=== PATIENT | female | born 1980 | race Caucasian/White ===

== ENCOUNTER → 2018-03-15 | Outpatient (CLI) | payer BC ==
--- NOTE | 2018-03-15 11:49 | US ---
EXAMINATION TYPE: US pelvis complete transvaginal DATE OF EXAM: 03/15/2018 COMPARISON: CLINICAL HISTORY: N92.1 MENORRHAGIA. Postcoital bleeding TECHNIQUE: Transvaginal (TV) and Transabdominal (TA) . Transabdominal sonographic images of the pel vis were acquired. Transvaginal sonographic images were medically necessary to better assess the fol lowing anatomy: Ovaries. Grayscale, color Doppler imaging performed of the ovaries. Date of LMP: 03/02/2018, EXAM MEASUREMENTS: Uterus: 8.9 x 4.7 x 3.8 cm Endometrial Stripe: 0.6 cm Right Ovary: 2.8 x 1.8 x 1.5 cm Left Ovary: 5.0 x 2.9 x 2.5 cm 1. Uterus: Anteverted Heterogenous 2. Endometrium: wnl 3. Right Ovary: Follicles seen 4. Left Ovary: Follicles seen. Cystic appearing lesion - 3.3 x 2.2 x 2.2 cm 5. Bilateral Adnexa: wnl 6. Posterior cul-de-sac: no free fluid Cervix- nabothian cyst IMPRESSION: Normal endometrial stripe thickness. Heterogeneous appearance to the uterus could be due to underlying fibroid uterus, pelvic MRI may be of benefit. Probable left ovarian cyst, consider foll ow-up.
== END | disposition home or self-care (01) ==
LOC: RADUSWWP 10:05
PROVIDERS: ATTEND Obstetrics & Gynecology
DX: N92.1 Excessive and frequent menstruation with irregular cycle (principal); N93.0 Postcoital and contact bleeding
CPT/HCPCS: 76830; 76856

== ENCOUNTER → 2019-02-07 | Outpatient (CLI) | payer BC ==
[2019-02-07 15:25] VITALS: BP 103/54; PULSE 80; RESP 16; TEMP 98.2; BMI 43.7
--- NOTE | 2019-02-25 13:37 | P.HPBAR ---
Bariatric H&P - History & Physicial H&P Date: 02/07/19 History & Physicial: Visit/CC: SLEEVE/2014 3RD VISIT TO CLINIC ONLY Patient initial contact: Initial weight: 101.151 kg Initial weight in pounds: 223.00 Height: 5 ft Initial BMI: 43.5 Last weight: Current weight: 101.605 kg Current weight in pounds: 224.00 Current BMI: 43.7 [place] body weight (based on NIH guidelines): 45.359 kg Excess body weight loss: The patient is a 38 year-old F who presents for Bariatric Assessment. Patient presents today for sleeve gastrectomy follow-up. She's had some minimal GERD. She also has complaints of increased weight with weight gain. Past Medical History Past Medical History: GERD/Reflux Additional Past Medical History / Comment(s): OBESITY, heavy menstural periods, History of Any Multi-Drug Resistant Organisms: None Reported Past Surgical History: Appendectomy, Bariatric Surgery, Section Additional Past Surgical History / Comment(s): CTR BILAT WRISTS, GASTRIC SLEEVE January- CAME IN FOR EGD/DILATION, PERFORATED AND WENT TO OR TO REPAIR. Past Anesthesia/Blood Transfusion Reactions: No Reported Reaction Smoking Status: Former smoker - Past Family History Mother Family Medical History: Thyroid Disorder Father Family Medical History: No Reported History, Musculoskeletal Disorder Additional Family Medical History / Comment(s): bad knees and bad back Surgical - Exam Vital Signs Temp Pulse Resp BP 98.2 F 80 16 103/54 02/07/19 15:22 02/07/19 15:22 02/07/19 15:22 02/07/19 15:22 - General well developed, well nourished, no distress - Abdomen Abdomen: soft, non tender Bariatric Assessment & Plan Plan: Status post sleeve gastrectomy. Patient's had GERD and waking. She'll undergo EGD. Bariatric Checklist Checklist: Plan: Checklist: EGD: 1. Hiatal hernia: 2. H. Pylori: HgbA1c: Vitamin D: Smoking: Former smoker Primary care physician referral: Rubens Berry ([facility]) Psychiatry clearance: Cardiology clearance: Sleep study: Diet journal: VTE risk score: VTE risk level: Rehab needs at discharge:
== END | disposition home or self-care (01) ==
LOC: BARWHC3 14:59
PROVIDERS: ATTEND Surgery
DX: Z48.815 Encounter for surgical aftercare following surgery on the digestive system (principal); K21.9 Gastro-esophageal reflux disease without esophagitis; Z98.84 Bariatric surgery status
CPT/HCPCS: 99211

== ENCOUNTER → 2019-02-14 | Outpatient (CLI) | payer BC ==
--- NOTE | 2019-02-14 13:42 | FL ---
EXAMINATION: Single contrast Cervical and Thoracic Esophagram DATE OF EXAM: 02/14/2019 CLINICAL INDICATION: 38-year-old female dysphasia, patient reports iron deficiency anemia, history of gastric sleeve surgery 2014. COMPARISON: 02/28/2015 Total Fluoroscopy Time: 34 seconds. Total images: 15 FINDINGS: The swallowing mechanism is normal and hypopharyngeal anatomy is preserved. The cervical and thoracic portions have a normal course and caliber and normal motility. The mucosa i s normal and no persistent filling defect is encountered allowing for single contrast technique. No hiatal hernia is present. There is prompt passage from the stomach into the surgery stomach and th en into the small bowel. IMPRESSION: 1. Status post sleeve gastrectomy. 2. Otherwise, unremarkable single contrast esophagram.
== END | disposition home or self-care (01) ==
LOC: RADUSWWP 08:59
PROVIDERS: ATTEND Surgery Plastic and Reconstructive Surgery
DX: R13.10 Dysphagia, unspecified (principal); Z98.84 Bariatric surgery status
CPT/HCPCS: 74220

== ENCOUNTER 2019-02-18 09:29 | Day surgery (SDC) | payer BC ==
[2019-02-16 10:50] VITALS: BMI 44.3
[~2019-02-18 09:29] MED LIST: LACTATED RINGERS 1,000 ML IV SCH
[2019-02-18 09:46] VITALS: TEMP 97.7
[2019-02-18] MEDS ORDERED: LIDOCAINE 1% 20 ML VIAL (10MG/ML) FOR IV START INTRADERMA ONE (09:48)
[2019-02-18] MEDS ORDERED: LIDOCAINE 1% INJ 10MG/ML (20 ML MDV) ONE (10:16)
[2019-02-18] MEDS ORDERED: PROPOFOL 10 MG/ML 20 ML VIAL IV ONE (10:16)
--- NOTE | 2019-02-18 10:22 | P.GSHP ---
History of Present Illness H&P Date: 02/18/19 Chief Complaint: GERD This is a 38-year-old female who has undergone previous laparoscopic sleeve gastric. Patient has developed GERD. She presents today for EGD. Past Medical History Past Medical History: GERD/Reflux Additional Past Medical History / Comment(s): heavy menstural periods, ANEMIA, HEADACHE History of Any Multi-Drug Resistant Organisms: None Reported Past Surgical History: Appendectomy, Bariatric Surgery, Section Additional Past Surgical History / Comment(s): CTR BILAT WRISTS, GASTRIC SLEEVE January- CAME IN FOR EGD/DILATION, PERFORATED AND WENT TO OR TO REPAIR. Past Anesthesia/Blood Transfusion Reactions: No Reported Reaction Smoking Status: Former smoker - Past Family History Mother Family Medical History: Thyroid Disorder Father Family Medical History: Cancer Additional Family Medical History / Comment(s): COLON AND SKIN CANCER Medications and Allergies Home Medications Medication Instructions Recorded Confirmed Type buPROPion SR [Wellbutrin SR] 150 mg PO BID 04/04/14 02/16/19 History Omeprazole 40 mg PO -BRKFST #90 cap 01/24/15 02/16/19 Rx Acetaminophen [Tylenol] 325 mg PO Q4H PRN 02/07/19 02/18/19 History FLUoxetine HCL [PROzac] 20 mg PO DAILY 02/07/19 02/16/19 History Ferrous Sulfate [Iron] 325 mg PO DAILY 02/16/19 02/16/19 History Allergies Allergy/AdvReac Type Severity Reaction Status Date / Time No Known Allergies Allergy Verified 02/18/19 09:41 Surgical - Exam Vital Signs Temp Pulse Resp BP Pulse Ox 97.7 F 68 18 134/69 96 02/18/19 09:43 02/18/19 09:43 02/18/19 09:43 02/18/19 09:43 02/18/19 09:43 - General well developed, well nourished, no distress - Eyes PERRL - ENT normal pinna - Neck no masses - Respiratory normal expansion - Cardiovascular Rhythm: regular - Abdomen Abdomen: soft, non tender Assessment and Plan Assessment: GERD. We'll perform EGD.
[2019-02-18 10:35] VITALS: RESP 16
--- NOTE | 2019-02-18 10:35 | P.OP ---
Date of Procedure: 02/18/19 Preoperative Diagnosis: GERD Postoperative Diagnosis: Antral gastritis Gastric diverticulum Procedure(s) Performed: EGD Anesthesia: MAC Surgeon: Juni Arndt Pathology: other (Antrum) Condition: stable Disposition: PACU Description of Procedure: The patient's placed on the endoscopy table in the lateral position. The patient received IV sedation. The gastroscope some placed oropharynx passed in the esophagus and into the stomach. Scope some placed through the pylorus. The first and second portion duodenum appeared normal. The scope summer back the antrum this was mildly inflamed. A biopsies performed. The scope was then brought back. The patient a previous sleeve gastrectomy. The sleeve appeared to be dilated. The sleeve had no evidence of any obstruction. At the proximal stomach appeared to be a diverticulum just below the GE junction. The GE junction was at 40 cm. The distal esophagus appeared normal. The proximal esophagus appeared normal. Scope was withdrawn for patient.
[2019-02-18 11:04] VITALS: BP 115/78; PULSE 58
== END 2019-02-18 11:23 | disposition home or self-care (01) ==
LOC: ORWHC2ENDO 09:29
PROVIDERS: ATTEND Surgery
DX: K29.50 Unspecified chronic gastritis without bleeding (principal); K21.9 Gastro-esophageal reflux disease without esophagitis; Z98.84 Bariatric surgery status; K31.4 Gastric diverticulum; Z79.899 Other long term (current) drug therapy; Z98.890 Other specified postprocedural states; Z87.891 Personal history of nicotine dependence; Z80.0 Family history of malignant neoplasm of digestive organs; Z80.8 Family history of malignant neoplasm of other organs or systems; Z90.49 Acquired absence of other specified parts of digestive tract; Z87.898 Personal history of other specified conditions
CPT/HCPCS: 81025; 88305; 43239; J2001; J2704

== ENCOUNTER → 2019-02-21 | Outpatient (CLI) | payer BC ==
[2019-02-21 15:37] VITALS: BP 124/66; PULSE 61; RESP 16; TEMP 98.7; BMI 44.3
--- NOTE | 2019-02-21 16:52 | P.HPBAR ---
Bariatric H&P - History & Physicial H&P Date: 02/21/19 History & Physicial: Visit/CC: sleeve follow-up Patient initial contact: Initial weight: 101.151 kg Initial weight in pounds: 223.00 Height: 5 ft Initial BMI: 43.5 Last weight: Current weight: 102.965 kg Current weight in pounds: 227.00 Current BMI: 44.3 [place]more body weight (based on NIH guidelines): 45.359 kg Excess body weight loss: The patient is a 38 year-old F who presents for Bariatric Assessment. Patient presents today for sleeve gastrectomy follow-up. She has some complaints of GERD. She's been currently treated with omeprazole. She states her GERD is minimal today. Her weight has increased since her last visit. She's gained 3 pounds. She's had an EGD performed which showed a mildly dilated gastric sleeve with a small pouch in the proximal stomach. Past Medical History Past Medical History: GERD/Reflux Additional Past Medical History / Comment(s): OBESITY, heavy menstural periods, History of Any Multi-Drug Resistant Organisms: None Reported Past Surgical History: Appendectomy, Bariatric Surgery, Section Additional Past Surgical History / Comment(s): CTR BILAT WRISTS, GASTRIC SLEEVE January- CAME IN FOR EGD/DILATION, PERFORATED AND WENT TO OR TO REPAIR. Past Anesthesia/Blood Transfusion Reactions: No Reported Reaction Past Psychological History: Depression Additional Psychological History / Comment(s): Takes Wellbutrin and Prozac daily Smoking Status: Former smoker Past Alcohol Use History: None Reported Additional Past Alcohol Use History / Comment(s): STARTED SMOKING AT AGE 13 SMOKED 1PPD QUIT , restarted in 2015 but quit again in 2016, Past Drug Use History: Cocaine, Marijuana, Methamphetamine Additional Drug Use History / Comment(s): CLEAN since 2009 - Past Family History Mother Family Medical History: Thyroid Disorder Father Family Medical History: Cancer Additional Family Medical History / Comment(s): COLON AND SKIN CANCER Surgical - Exam Vital Signs Temp Pulse Resp BP 98.7 F 61 16 124/66 02/21/19 15:24 02/21/19 15:24 02/21/19 15:24 02/21/19 15:24 - General well developed, well nourished, no distress - Eyes PERRL - ENT normal pinna - Neck no masses - Respiratory normal expansion - Cardiovascular Rhythm: regular - Abdomen Abdomen: soft, non tender Bariatric Assessment & Plan Plan: Status post sleeve gastrectomy. Patient has had weight gain. She will undergo diet counseling. Her GERD with management omeprazole. She'll follow-up in one month. Bariatric Checklist Checklist: Plan: Checklist: EGD: 1. Hiatal hernia: 2. H. Pylori: HgbA1c: Vitamin D: Smoking: Former smoker Primary care physician referral: Rubens Berry (formerly [facility]) Psychiatry clearance: Cardiology clearance: Sleep study: Diet journal: VTE risk score: VTE risk level: Rehab needs at discharge:
== END | disposition home or self-care (01) ==
LOC: BARWHC3 15:07
PROVIDERS: ATTEND Surgery
DX: Z48.815 Encounter for surgical aftercare following surgery on the digestive system (principal); E66.01 Morbid (severe) obesity due to excess calories; K21.9 Gastro-esophageal reflux disease without esophagitis; Z68.41 Body mass index [BMI] 40.0-44.9, adult; Z87.891 Personal history of nicotine dependence; Z98.84 Bariatric surgery status; Z79.899 Other long term (current) drug therapy
CPT/HCPCS: 97803; 99211

== ENCOUNTER → 2022-10-24 | Outpatient (CLI) | payer OTHER ==
--- NOTE | 2022-10-27 09:21 | MM ---
Reason for Exam: Screening (asymptomatic). Baseline mammogram. Patient History: Menarche at age 11. First Full-Term at age 23. Premenopausal. Patient has history of breast feeding. Paternal grandmother had breast cancer at or over age 50. Last menstrual period: 10/23/2022 Risk Values: Rebeca 5 year model risk: 0.6%. NCI Lifetime model risk: 8.8%. Prior Study Comparison: Patient's first Mammogram. Tissue Density: The breast tissue is heterogeneously dense. This may lower the sensitivity of mammography. Findings: Analyzed By CAD. There is no suspicious group of microcalcifications or suspicious mass in either breast. Overall Assessment: Negative, BI-RAD 1 Management: Screening Mammogram of both breasts in 1 year. A clinical breast exam by your physician is recommended on an annual basis and results should be correlated with mammographic findings. Electronically signed and approved by: Sukhdeep Terrell M.D.
== END | disposition home or self-care (01) ==
LOC: RADMAMWWP 07:16
PROVIDERS: ATTEND Family Medicine
DX: Z12.31 Encounter for screening mammogram for malignant neoplasm of breast (principal); Z80.3 Family history of malignant neoplasm of breast
CPT/HCPCS: 77067

== ENCOUNTER → 2023-01-19 | Outpatient (CLI) | payer OTHER ==
[2023-01-19 15:06] LABS: Basophils # (A) 0.06 X 10*3/uL (0.00-0.10); Basophils % (A) 0.9 %; Eosinophils # (A) 0.15 X 10*3/uL (0.04-0.35); Eosinophils % (A) 2.2 %; HCT 37.9 % (37.2-46.3); HGB 12.1 d/dL (12.0-15.0); Lymphocytes # (A) 2.41 X 10*3/uL (0.90-5.00); Lymphocytes % (A) 34.7 %; MCHC 31.9 d/dL (32.0-37.0); MCV 93.8 FL (80.0-97.0); Mean Platelet Volume 9.4 FL (9.5-12.2); Monocytes # (A) 0.51 X 10*3/uL (0.20-1.00); Monocytes % (A) 7.3 %; NRBC Per 100 WBC 0 X 10*3/uL (0.00-0.01); Neutrophils # (A) 3.79 X 10*3/uL (1.80-7.70); Neutrophils % (A) 54.5 %; Platelet Count 415 X 10*3/uL (140-440); RBC 4.04 X 10*6/uL (4.10-5.20); RDW 12.5 % (11.5-14.5); WBC 6.95 X 10*3/uL (4.50-10.00)
== END | disposition home or self-care (01) ==
LOC: LABPAT 09:22
PROVIDERS: ATTEND Obstetrics & Gynecology
DX: Z01.812 Encounter for preprocedural laboratory examination (principal)
CPT/HCPCS: 36415; 85025

== ENCOUNTER 2023-01-27 06:36 | Day surgery (SDC) | payer OTHER ==
[2023-01-22 15:37] VITALS: BMI 44.9
--- NOTE | 2023-01-26 11:05 | P.HPOB ---
History of Present Illness H&P Date: 01/26/23 Chief Complaint: menorrhagia 42 year old presents for D&C hysteroscopy and endometrial ablation with NovaSure. Review of Systems All systems: negative Constitutional: Denies chills, Denies fever Eyes: denies blurred vision, denies pain Ears, nose, mouth and throat: Denies headache, Denies sore throat Cardiovascular: Denies chest pain, Denies shortness of breath Respiratory: Denies cough Gastrointestinal: Denies abdominal pain, Denies diarrhea, Denies nausea, Denies vomiting Genitourinary: Denies dysuria, Denies hematuria Musculoskeletal: Denies myalgias Integumentary: Denies pruritus, Denies rash Neurological: Denies numbness, Denies weakness Psychiatric: Denies anxiety, Denies depression Endocrine: Denies fatigue, Denies weight change Past Medical History Past Medical History: GERD/Reflux Additional Past Medical History / Comment(s): OBESITY, heavy menstural periods, History of Any Multi-Drug Resistant Organisms: None Reported Past Surgical History: Appendectomy, Bariatric Surgery, Section, Orthopedic Surgery Additional Past Surgical History / Comment(s): CTR BILAT WRISTS, GASTRIC SLEEVE January- CAME IN FOR EGD/DILATION, PERFORATED AND WENT TO OR TO REPAIR. Past Anesthesia/Blood Transfusion Reactions: No Reported Reaction Smoking Status: Former smoker - Past Family History Mother Family Medical History: Thyroid Disorder Father Family Medical History: No Reported History, Musculoskeletal Disorder Additional Family Medical History / Comment(s): bad knees and bad back Medications and Allergies Home Medications Medication Instructions Recorded Confirmed Type Omeprazole 40 mg PO AC-BRKFST #90 cap 01/24/15 01/22/23 Rx Dextromethorphan HBr/Bupropion 1 each PO DAILY 01/22/23 01/22/23 History [Auvelity ER 45-105 mg Tablet] Allergies Allergy/AdvReac Type Severity Reaction Status Date / Time No Known Allergies Allergy Verified 01/22/23 15:27 Exam Osteopathic Statement: *. No significant issues noted on an osteopathic structural exam other than those noted in the History and Physical/Consult. HEart: RRR Lungs: CTAB Abdomen: soft, nontender Extremeties: neg ana's Assessment and Plan (1) Menorrhagia Status: Acute Code(s): N92.0 - EXCESSIVE AND FREQUENT MENSTRUATION WITH REGULAR CYCLE SNOMED Code(s): 217488908 Plan: D&C hysteroscopy and endometrial ablation with Novasure
[~2023-01-27 06:36] MED LIST changes: +DEXAMETHASONE SOD PHOSPHATE 4 MG/ML 1 ML VIAL IV ONE; +ONDANSETRON 4 MG/2 ML VIAL IVP ONE; +Pre Op ABX Message 1 EACH MISC MISCELLANE ONE
[2023-01-27] MEDS ORDERED: HYDROmorphone 0.5 MG/0.5 ML SYRINGE IVP PRN (07:00)
[2023-01-27] MEDS ORDERED: PROPOFOL 10 MG/ML 20 ML VIAL IV ONE (07:36)
[2023-01-27] MEDS ORDERED: SUCCINYLCHOLINE CHLORIDE 200 MG/10 ML VIAL IV ONE (07:36)
[2023-01-27] MEDS ORDERED: LIDOCAINE 2% INJ 20 MG/ML (2 ML VIAL) ONE (07:36)
[2023-01-27] MEDS ORDERED: fentaNYL (PF) 50 MCG/ML 2 ML AMP ONE (07:36)
[2023-01-27] MEDS ORDERED: ALBUTEROL HFA INHALER INHALATION ONE (07:36)
[2023-01-27] MEDS ORDERED: MIDAZOLAM 2 MG/2 ML VIAL IV ONE (07:38)
--- NOTE | 2023-01-27 08:26 | P.OP ---
Date of Procedure: 01/27/23 Preoperative Diagnosis: 1. Menorrhagia Postoperative Diagnosis: 1. Menorrhagia Procedure(s) Performed: D&C, hysteroscopy, endometrial ablation with NovaSure Anesthesia: MAC Surgeon: Nan Liu Estimated Blood Loss (ml): 5 IV fluids (ml): 300 Urine output (ml): 15 Pathology: other (Endometrial curettings) Condition: stable Disposition: PACU Operative Findings: Uterus sounded to 10 cm, cavity width was 3.6 cm time of ablation was 68 seconds at [address]. Adequate ablation after NovaSure Description of Procedure: Patient is taken the operating room where general anesthesia was obtained without difficulty. She was prepped and draped in normal sterile fashion dorsal lithotomy position, legs placed in the [employer] cane stirrups. Bladder was drained of all urine. Weighted speculum placed in the vagina and the anterior lip the cervix was grasped with serial tooth tenaculum. The uterus sounded to 10 cm and the cervix under 3.5 cm making the cavity length 6.5 cm. The cervix was dilated to #8 Hegar dilator. Hysteroscopy was then performed. Both ostia were visualized and there was a smooth contour of the uterus. Sharp curet was then gently used to obtain endometrial curettings. The NovaSure was introduced into the uterus with a cavity length of 6.5 cm, width 3.6 cm. after cavity assessment was passed, the time of ablation was 68 seconds at [address]. Hysteroscopy was again performed and adequate ablation was noted. All instruments removed from the vagina. Patient tolerated the procedure well, sponge and instrument counts were correct 2 and she was taken to recovery in stable condition.
[2023-01-27 08:29] VITALS: TEMP 97.2
[2023-01-27 08:42] VITALS: RESP 16
[2023-01-27] MEDS: MEPERIDINE 50 MG/ML SYRINGE IVP ONE ×2 (08:48→09:03)
[2023-01-27 10:11] VITALS: BP 146/88; PULSE 80
== END 2023-01-27 10:30 ==
LOC: OR 06:36
PROVIDERS: ATTEND Obstetrics & Gynecology
DX: N92.0 Excessive and frequent menstruation with regular cycle (principal); K21.9 Gastro-esophageal reflux disease without esophagitis; Z90.49 Acquired absence of other specified parts of digestive tract; Z90.89 Acquired absence of other organs; Z98.891 History of uterine scar from previous surgery; Z87.891 Personal history of nicotine dependence; Z83.49 Family history of other endocrine, nutritional and metabolic diseases; Z79.899 Other long term (current) drug therapy
CPT/HCPCS: 81025; 88305; 58563; J2250; J0330; J1100; J2175; J2405; J3010; J2704; J1170; J2001

== ENCOUNTER → 2024-04-07 | Outpatient (CLI) | payer BC ==
--- NOTE | 2024-04-12 13:28 | MM ---
Reason for Exam: Screening (asymptomatic). Last mammogram was performed 1 year(s) and 5 month(s) ago. Patient History: Menarche at age 11. First Full-Term at age 23. Premenopausal. Patient has history of breast feeding. Paternal grandmother had breast cancer at or over age 50. Risk Values: Rebeca 5 year model risk: 0.7%. NCI Lifetime model risk: 8.7%. Prior Study Comparison: 10/24/2022 Bilateral MG screening mammo w CAD, [facility]. Tissue Density: The breasts are heterogeneously dense, which may obscure small masses. Findings: Analyzed By CAD. Right breast: There is no suspicious group of microcalcifications or new suspicious mass. Left breast: There is no suspicious group of microcalcifications or new suspicious mass. Overall Assessment: Negative, BI-RAD 1 Management: Screening Mammogram of both breasts in [address] [facility] will attempt to contact patient to return for supplemental views and ultrasound if indicated. Patient should continue monthly self-breast exams. A clinical breast exam by your physician is recommended on an annual basis. This exam should not preclude additional follow-up of suspicious palpable abnormalities. Note on Rebeca scores and lifetime risk: 1. A Rebeca score greater than 3% is considered moderate risk. If this is the case, consider specialist referral to assess eligibility for a risk reducing agent. 2. If overall lifetime risk for the development of breast cancer is 20% or higher, the patient may qualify for future screening with alternating mammogram and breast MRI. Electronically signed and approved by: Fady Mccauley DO
== END | disposition home or self-care (01) ==
LOC: RADMAMWWP 09:23
PROVIDERS: ATTEND Family Medicine
DX: Z12.31 Encounter for screening mammogram for malignant neoplasm of breast
CPT/HCPCS: 77067

== ENCOUNTER → 2024-08-15 | Outpatient (CLI) | payer BC ==
--- NOTE | 2024-08-15 07:55 | CT ---
EXAMINATION TYPE: CT brain wo con DATE OF EXAM: 08/15/2024 6:52 AM COMPARISON: None. CLINICAL INDICATION: Female, 44 years old with history of R51.9 HEADACHE M62.838 MUSCLE SPASM, HEADAC HE, TECHNIQUE: Examination was done in axial plane without intravenous contrast. Coronal and sagittal r econstructions performed. CT DLP: 992.2 mGycm, Automated exposure control for dose reduction was used. FINDINGS: There is no evidence of acute intracranial hemorrhage, acute ischemic changes, mass, mass-effect, or extra-axial fluid collection. There is no effacement of cerebral sulci or basal subarachnoid cister ns. There is no hydrocephalus. There is no midline shift. [place]-white matter distinction is preserv ed. There may be some subtle underlying patchy subcortical white matter hypodensity on the left. Paranasal sinuses and mastoid air cells well pneumatized. Orbits and globes are intact. A piercing al jose the left lateral periorbital region. IMPRESSION: 1. No acute intracranial abnormality seen. 2. Some possible subtle patchy subcortical white matter change on the left. MRI can further evaluate for any potential changes that could reflect chronic small vessel ischemic disease, chronic migraines , or demyelinating disease. [facility], Workstation: [email or web address], 08/15/2024 7:52 AM
== END | disposition home or self-care (01) ==
LOC: RADCTMAIN 06:34
PROVIDERS: ATTEND Family Medicine
DX: M26.603 Bilateral temporomandibular joint disorder, unspecified (principal); M62.838 Other muscle spasm; R90.82 White matter disease, unspecified; R51.9 Headache, unspecified
CPT/HCPCS: 70450

== ENCOUNTER → 2024-10-13 | Outpatient (CLI) | payer BC ==
--- NOTE | 2024-10-13 17:24 | MR ---
INDICATION: Patient age:Female; 44 years old; Reason for study: R93.0 ABNORMAL IMAGING OF SKULL R51.9 HEADACHE; [facility]. COMPARISON: CT brain 08/15/2024. TECHNIQUE: Multi planar, multi sequence imaging was performed through the brain without the administr ation of intravenous contrast. FINDINGS: The llanes-white junctions, ventricular system, basal cisterns appear unremarkable. Age-appropriate cer ebral parenchymal volume. Diffusion-weighted imaging shows no evidence of restricted diffusion to sug gest acute/subacute infarct. Intracranial arterial flow voids are maintained. Midline structures show no abnormality. Multiple foci of high T2/FLAIR signal intensity are seen within the subcortical whit e matter. Predominantly within the bilateral frontal lobe subcortical white matter. Largest measures up to 5 mm within the left frontal lobe subcortical white matter (series 602, image 20). Approximatel y 20 lesions identified. Additional foci identified within the lino. The susceptibility weighted imag es do not reveal any evidence for micro-hemorrhage. The bone marrow signal is within normal limits. The paranasal sinuses and globes are unremarkable. IMPRESSION: 1. No evidence of intracranial mass or acute/subacute infarct. 2. Nonspecific white matter changes. Etiologies include demyelination versus chronic small vessel isc hemic disease versus chronic migraines versus other. [facility], , 10/13/2024 5:22 PM
== END | disposition home or self-care (01) ==
LOC: RADMRIMAIN 15:56
PROVIDERS: ATTEND Family Medicine
DX: R93.0 Abnormal findings on diagnostic imaging of skull and head, not elsewhere classified (principal); R51.9 Headache, unspecified; R90.82 White matter disease, unspecified
CPT/HCPCS: 70551